=== PATIENT | male | born 1980 | race Caucasian/White ===

== ENCOUNTER 2023-06-25 22:44 | Emergency (ER) | payer SELFPAY ==
[2023-06-25 23:04] VITALS: BP 215/146; PULSE 95; RESP 14; TEMP 36.9; O2SAT 99; BMI 23.6
[2023-06-25 23:31] VITALS: O2SAT 97
[2023-06-25 23:32] VITALS: BP 222/136; PULSE 95; RESP 21; O2SAT 99
[2023-06-26] VITALS (8 sets, daily range): BP systolic 189–199; BP diastolic 112–118; PULSE 78–87; RESP 16–17; O2SAT 97–98
--- NOTE | 2023-06-26 01:43 | ED_ITS ---
HPI - Skin/Abscess/Foreign Bdy General Chief complaint: Skin/Abscess/Foreign Body Stated complaint: nose bleed all day/tooth abcess Time Seen by Provider: 06/26/23 01:06 Source: patient Mode of arrival: Ambulatory Limitations: no limitations History of Present Illness HPI narrative: Patient is a 43-year-old male presenting today with nosebleed and left tooth pain with facial swelling. He reports that he had a nosebleed out of the left side today which has now completely stopped. He is unsure why the nosebleed started. He said it was dripping down his throat it is no longer. He also is noticing some left facial swelling and dental pain. He has poor dentition at baseline he has previously had dental infections. No fever or chills. Related Data Home Medications Medication Instructions Recorded Confirmed ALBUTEROL SULFATE (Ventolin / ##0 10/15/08 Proventil) Previous Rx's Medication Instructions Recorded amoxicillin 500 mg capsule 500 mg PO BID #14 caps 06/26/23 Patient History tobacco type: smokeless tobacco Substance Use Type: amphetamines Exam Initial Vital Signs Initial Vital Signs: Vital Signs Temperature 98.4 F 06/25/23 23:04 Pulse Rate 95 H 06/25/23 23:04 Respiratory Rate 14 06/25/23 23:04 Blood Pressure 215/146 H 06/25/23 23:04 Pulse Oximetry 99 06/25/23 23:04 Oxygen Delivery Method Room Air 06/25/23 23:04 GENERAL: Alert sleeping easily awoken 43-year-old male HEENT: Head atraumatic,EOMI, pupils reactive, face symmetric, moist mucous membranes MOUTH: Overall poor dentition he does have some submandibular lymphadenopathy on the left side and slightly swollen face but no erythema no trismus NOSE: No active epistaxis no septal hematoma CARDIOVASCULAR: Regular rate and rhythm without murmurs, rubs or gallops. RESPIRATORY: Breath sounds equal bilaterally, no wheezes rales or rhonchi. EXTREMITIES: Normal range of motion, no clubbing or edema. Neurovascularly intact NEUROLOGICAL: Alert and oriented x4. SKIN: Warm, dry, no laceration, no petechiae, no rashes or lesions. Course Orders Ordered: Discontinued Medications Amoxicillin (Amoxicillin 250 Mg Prepack) 1 bottle MISC DIRECTED ONE Stop: 06/26/23 01:51 Last Admin: 06/26/23 02:02 Dose: 1 bottle Documented By: REGGIE Vital Signs Vital signs: Vital Signs - 8 hr 06/25/23 23:04 06/25/23 23:31 06/25/23 23:32 Temperature 98.4 F Pulse Rate 95 H Respiratory Rate 14 Blood Pressure 215/146 H 222/136 H Pulse Oximetry 99 97 Oxygen Delivery Method Room Air 06/25/23 23:32 06/26/23 00:00 06/26/23 00:00 Temperature Pulse Rate 95 H 81 Respiratory Rate 21 16 Blood Pressure 199/117 H Pulse Oximetry 99 97 Oxygen Delivery Method 06/26/23 00:26 06/26/23 00:26 06/26/23 00:30 Temperature Pulse Rate 87 79 Respiratory Rate 16 Blood Pressure 191/112 H Pulse Oximetry 98 98 Oxygen Delivery Method 06/26/23 00:30 06/26/23 01:00 06/26/23 01:30 Temperature Pulse Rate 78 81 Respiratory Rate 16 17 Blood Pressure 189/113 H Pulse Oximetry 97 97 Oxygen Delivery Method 06/26/23 02:00 06/26/23 02:12 06/26/23 02:13 Temperature Pulse Rate 81 81 Respiratory Rate 17 16 Blood Pressure 193/118 H Pulse Oximetry 97 97 Oxygen Delivery Method Room Air MDM - Skin/Abscess/Foreign Bdy Lab Data Labs: Urine Dip Bedside Urine Glucose Negative Bedside Urine Bilirubin - Negative Bedside Urine Ketone - Negative Urine Specific [place] 1.015 Bedside Urine Occult Blood - Negative Bedside Urine pH 7.0 Bedside Urine Protein - Negative Bedside Urine Urobilinogen - Negative Bedside Urine Nitrite - Negative Bedside Urine Leukocytes - Negative Esterase MDM Narrative Medical decision making narrative: Patient 43-year-old male history of amphetamine use presents today with mouth swelling and epistaxis. Unclear why he has no started bleeding. But no active bleeding now. He is poor dentition possible dental infection versus sialadenitis. We will start him on antibiotics. Tylenol Motrin as needed for pain. Discharge Plan Departure Patient Disposition: Home Clinical Impression: Epistaxis, Dental infection Instructions: DI for Nosebleed, DI for Dental Pain Activity Restrictions/Additional Instructions: *You have been diagnosed with dental infection *What to do: At this time if your no should start bleeding again. Tip head forward apply pressure may use ice as well. Will start you on some antibiotics for your tooth however you may also have a stone in 1 of your saliva glands. If the swelling gets worse please return to ED immediately. *Continue to take medications as directed Amoxicillin 500 mg twice a day for 7 days-->[facility] Tylenol Motrin as needed for pain *Follow up with your primary care provider in 2-3 days or call [phone] *Return to ER if you should have increasing fever chills swelling redness difficulty swallowing or breathing or any new, worsening or concerning symptoms Prescriptions: New amoxicillin 500 mg capsule 500 mg PO BID Qty: 14 0RF No Action ALBUTEROL SULFATE (Ventolin / Proventil) Qty: 0 Referrals: Stephen Reese MD [Primary Care Provider] - Stand Alone Forms: Patient Portal/API
[2023-06-26] MEDS: AMOXICILLIN 250 MG PREPACK 1 BOTTLE MISC (02:02)
== END 2023-06-26 02:14 | disposition home or self-care (01) ==
PROVIDERS: Emergency Provider Emergency Medicine; PCP Family Medicine
DX: R04.0 Epistaxis (principal); K04.7 Periapical abscess without sinus
CPT/HCPCS: 81003; 99282; 99283